=== PATIENT | female | born 1980 | race Caucasian/White ===

== ENCOUNTER 2017-01-09 06:00 | Inpatient (IN) | payer OTHER ==
[2017-01-09] MEDS ORDERED: EPSOM SALT 454 GM TP PRN (08:31)
[2017-01-09] MEDS ORDERED: LR 1,000 ML IV PRN (08:31)
[2017-01-09] MEDS ORDERED: OXYTOCIN/RINGERS LACTATE 1,000 ML IV PRN (08:31)
[2017-01-09] MEDS ORDERED: TERBUTALINE SULFATE 1 MG/ML VIAL IV PRN (08:31)
[2017-01-09] MEDS ORDERED: OLIVE OIL 118 ML BTL MISC PRN (08:31)
[2017-01-09 09:18] LABS: % IMMATURE GRANULYOCYTES 0.7 % (0.0-1.1); ABSOLUTE IMMATURE GRANULOCYTES 0.08 10^3/uL (0.00-0.10); ADD DIFF? NO; ADD MORPH? NO; ADD SCAN? NO; ATYPICAL LYMPHOCYTE FLAG 0 (0-99); FRAGMENT RBC FLAG 0 (0-99); HEMATOCRIT 38.2 % (38.0-47.0); HEMOGLOBIN 12.6 g/dL (12.6-16.3); LEFT SHIFT FLG 0 (0-99); LIPEMIA HEMOLYSIS FLAG 80 (0-99); MEAN CELL HEMOGLOBIN 26.6 pg (27.9-34.1); MEAN CELL VOLUME 80.8 fL (81.5-99.8); MEAN PLATELET VOLUME 11.3 fL (8.7-11.7); PLATELET CLUMPS FLAG 20 (0-99); PLATELET COUNT 226 10^3/uL (150-400); RED BLOOD CELL COUNT 4.73 10^6/uL (4.18-5.33); RED CELL DISTRIBUTION WIDTH 13.9 % (11.5-15.2)
[2017-01-09] MEDS ORDERED: LIDOCAINE 1% 300 MG/30 ML SDV ONE (09:19)
[2017-01-09] MEDS ORDERED: LR 500 ML IV PRN (09:19)
[2017-01-09] MEDS ORDERED: OLIVE OIL 118 ML BTL ONE (09:19)
[2017-01-09] MEDS ORDERED: TERBUTALINE SULFATE 1 MG/ML VIAL ONE (09:20)
[2017-01-09] MEDS ORDERED: MISOPROSTOL 200 MCG TAB ONE (09:20)
[2017-01-09] MEDS ORDERED: OXYTOCIN 10 UNIT/ML VIAL ONE (09:20)
[2017-01-09] MEDS ORDERED: AMMONIA AROMATIC 1 EACH AMP IH ONE (09:20)
[2017-01-09] MEDS ORDERED: OXYTOCIN/RINGERS LACTATE 500 ML IV SCH (09:30)
--- NOTE | 2017-01-09 09:48 | GHP ---
[f rep st] PREOP HISTORY AND PHYSICAL DATE OF ADMISSION: 01/09/2017 ADMISSION DIAGNOSIS: Intrauterine at 40 and 5/7ths week's gestation for augmentation of l abor. HISTORY OF PRESENT ILLNESS: The patient is a 36-year-old, 1, para 0, with a last menstrual period of 03/29/2016, and an EDC of 01/04/2017, which was confirmed by an 8-week ultrasound. She joe s had good care at [facility] [place] [facility] since registration at 8 weeks' gestation. Her preg marcela is complicated by increased BMI. Her pre- weight was 252 pounds. She has had approx imately 5 pound weight gain this . She also estimated macrosomia, estimated weight a t 36 weeks, baby was 97th percentile. She also has polyhydramnios with an CHRIS of 27.5 and that has been monitored weekly. She was not diagnosed with gestational diabetes. She has had an early 1 waylon r GTT which was elevated but a 3 hour which was normal and a 3rd trimester 1 hour GTT which was norm al. She has a history of scoliosis and questionable history of chronic hypertension, some elevated blood pressures pre and during this but never diagnosed with preeclampsia. Currently she has been having contractions for approximately 24 hours, ranging over 5 to 9 minutes, ranging in int ensity, some mild to moderate. No leakage of fluid. Minimal spotting. No active labor. Other ric n that, 10-point review of systems is negative and she feels well and has had good movement. She was assessed for labor check on the and with irregular contractions. Her cervix was found t o be 3, 75%. Overnight she has continued to have irregular contractions. This morning she is 4 and 75%, and wishes to be admitted for augmentation of labor, now at 40 and 5. PAST OBSTETRICAL HISTORY: There is none, this is her first . GYNECOLOGICAL PROBLEMS: She had a normal menstrual triad, menarche at 14, interval every 28-31 days . Cycles 5-7 days and had a sure and regular last menstrual period. She did have a history of an a bnormal Pap in this which was LGSIL. She had colpo that was negative but no biopsies were performed, that will be repeated . PAST MEDICAL HISTORY: Significant for elevated BMI and possible chronic hypertension but not a true diagnosis. She also has a history of scoliosis and had anesthesia consult a couple weeks ago. PAST SURGICAL HISTORY: She had a lap band surgery in 2007. Adenoids in childhood. No other surgic al history. ALLERGIES: Allergic to sulfa, causes anaphylaxis. MEDS: Include only vitamins. LABS: B positive, antibody negative, RPR nonreactive, rubella immune, hepatitis negative, HIV negat tonja, Pap LGSIL, gonorrhea and chlamydia negative. Verifi normal. AFP negative. One hour GTT 129. GBS is negative. SOCIAL HISTORY: She works as an associate attorney. Her and her Martínez were at the [facility] of this , are now together. She denies tobacco, alcohol, and drug use. FAMILY HISTORY: Maternal grandfather had a myocardial infarction. Paternal grandfather, father and paternal uncle have hypertension. Mother had a DVT on oral contraceptive pills. Paternal grandfat her in his 50s because of a stroke. Mother has congenital kidney disease. OBJECTIVE: Today her blood pressure was elevated at 160/98. heart tones are 130s and reactiv e. Moderate variability. Category 1. Contractions are irregular. Cervix is 4, 90%, -1, and ceph alic. ASSESSMENT AND PLAN: A 36-year-old, 1, para 0, at 40 and 5/7ths weeks' gestation, had a pro longed prodromal labor. Will be admitted for augmentation of labor. We will send [facility] labs due to e levated blood pressures and watch her blood pressures closely. We will periodically monitor with ma nual blood pressure cuff because of her increased BMI. We question the accuracy of the automatic cuf f. She currently denies any signs or symptoms of preeclampsia. Begin Pitocin and active labor emmett ochoa. /[id number]/MODL
[2017-01-09 09:57] LABS: ASPARTATE AMINOTRANSFERASE 19 IU/L (14-46); BILIRUBIN,TOTAL 0.5 mg/dL (0.1-1.4); BILIRUBIN-UNCONJUGATED 0.1 mg/dL (0.0-1.1); CREATININE 0.6 mg/dL (0.6-1.0); GLOMERULAR FILTRATION RATE > 60; URIC ACID 4.6 mg/dL (2.5-6.8)
[2017-01-09 09:58] LABS: ALANINE AMINOTRANSFERASE 18 IU/L (9-52); BILIRUBIN-CONJUGATED 0.4 mg/dL (0.0-0.5); LACTATE DEHYDROGENASE 815 IU/L (313-618)
--- NOTE | 2017-01-09 13:08 | OBPROG ---
OBG Labor Progress Note Assessment/Plan: Assessment: 36 y/o @ 40 5/7 weeks augmentation of labor Plan: Pt declines AROM now, will continue to increase pitocin to develop a regular pattern. Re check in 2 hours and she will consider AROM at this time. 01/09/17 13:09 Subjective: Pt is doing well now. She is feeling more tightening and is aware of contractions and pelvic pain/ pressure. She is not breathing through them or in a lot of pain. Objective: 01/09/17 08:27 01/09/17 08:27 Patient ABO/Rh B POSITIVE 01/09/17 08:27 Uric Acid 4.6 mg/dL (2.5-6.8) 01/09/17 08:27 Total Bilirubin 0.5 mg/dL (0.1-1.4) 01/09/17 08:27 Conjugated Bilirubin 0.4 mg/dL (0.0-0.5) 01/09/17 08:27 Unconjugated Bilirubin 0.1 mg/dL (0.0-1.1) 01/09/17 08:27 AST 19 IU/L (14-46) 01/09/17 08:27 ALT 18 IU/L (9-52) 01/09/17 08:27 Lactate Dehydrogenase 815 IU/L (313-618) H 01/09/17 08:27 - SVE Dilation (cm): 4 Effacement (%): 75 Station: -1 Oxytocin Orders Assessment - Pre-Induction/Augmentation Assessment Indication: IUP @ 40 5/7 weeks, LGA and polyhydramnios Presentation: Vertex Gestational Age: 40 week(s) and 5 day(s) Gestational Age Determined By: Ultrasound Estimated Weight: 5786-6421 Membrane Status: Intact Current Sterile Vaginal Exam (SVE): 75/-1 Current Contraction Pattern: Regular (Q 2-3) - Heart Rate Pattern Herrera FHR Baseline (bpm): 130 FHR Category: 1 FHR Pattern Variability: Moderate FHR Accelerations: Present - Reeder's Score Dilation: 3-4cm Effacement: 60-70 Station: -1,0 Cervix: Soft Cervix Position: Anterior Reeder Score Total: 10 - Induction/Augmentation Consent Risks/Benefits of Procedure Reviewed/Pt Agrees to Proceed: Yes ICD10 Worksheet Patient Problems: Problems Problem Status Onset Elective induction of labor planned Acute - ICD10 Problem Qualifiers (1) Elective induction of labor planned
--- NOTE | 2017-01-09 15:12 | OBPROG ---
OBG Labor Progress Note Assessment/Plan: Assessment: 36 y/o @ 40 5/7 weeks augmentation of labor Plan: AROM now for clear fluid and patient and baby did well. We will continue to dose pitocin to keep an active pattern. Pain management, with NO or epidural prn. 01/09/17 13:09 01/09/17 15:11 Subjective: Pt is breathing through and coping with stronger and regular contractions. Objective: 01/09/17 08:27 01/09/17 08:27 Patient ABO/Rh B POSITIVE 01/09/17 08:27 Uric Acid 4.6 mg/dL (2.5-6.8) 01/09/17 08:27 Total Bilirubin 0.5 mg/dL (0.1-1.4) 01/09/17 08:27 Conjugated Bilirubin 0.4 mg/dL (0.0-0.5) 01/09/17 08:27 Unconjugated Bilirubin 0.1 mg/dL (0.0-1.1) 01/09/17 08:27 AST 19 IU/L (14-46) 01/09/17 08:27 ALT 18 IU/L (9-52) 01/09/17 08:27 Lactate Dehydrogenase 815 IU/L (313-618) H 01/09/17 08:27 - SVE Dilation (cm): 5 Effacement (%): 75 Station: -1 - Procedures Non-surgical Procedures: Amniotomy - Physical Exam Estimated Weight: 0498-9981 Oxytocin Orders Assessment - Pre-Induction/Augmentation Assessment Presentation: Vertex Gestational Age: 40 week(s) and 5 day(s) Estimated Weight: 9371-9249 ICD10 Worksheet Patient Problems: Problems Problem Status Onset Elective induction of labor planned Acute - ICD10 Problem Qualifiers (1) Elective induction of labor planned
--- NOTE | 2017-01-09 19:10 | OBPROG ---
OBG Labor Progress Note Assessment/Plan: Assessment: 36 y/o @ 40 5/7 weeks augmentation of labor Plan: Small changes of cervical dilation now. If she hasn't made significant change on next check, I will place an IUPC and discuss an epidural. 01/09/17 13:09 01/09/17 15:11 01/09/17 19:04 Subjective: Pt is breathing through contractions. Objective: 01/09/17 08:27 01/09/17 08:27 Patient ABO/Rh B POSITIVE 01/09/17 08:27 Uric Acid 4.6 mg/dL (2.5-6.8) 01/09/17 08:27 Total Bilirubin 0.5 mg/dL (0.1-1.4) 01/09/17 08:27 Conjugated Bilirubin 0.4 mg/dL (0.0-0.5) 01/09/17 08:27 Unconjugated Bilirubin 0.1 mg/dL (0.0-1.1) 01/09/17 08:27 AST 19 IU/L (14-46) 01/09/17 08:27 ALT 18 IU/L (9-52) 01/09/17 08:27 Lactate Dehydrogenase 815 IU/L (313-618) H 01/09/17 08:27 - SVE Dilation (cm): 6 Effacement (%): 80 Station: -1 - Procedures Non-surgical Procedures: Amniotomy - Physical Exam Estimated Weight: 0588-0130 Oxytocin Orders Assessment - Pre-Induction/Augmentation Assessment Presentation: Vertex Gestational Age: 40 week(s) and 5 day(s) Estimated Weight: 0954-7297 ICD10 Worksheet Patient Problems: Problems Problem Status Onset Elective induction of labor planned Acute - ICD10 Problem Qualifiers (1) Elective induction of labor planned
--- NOTE | 2017-01-09 20:05 | OBPROG ---
OBG Labor Progress Note Assessment/Plan: Assessment: 36 y/o @ 40 5/7 weeks augmentation of labor Plan: No cervical change in the last hour. I placed an IUPC to document the strength of the contractions and an FSE to aid in monitoring the baby and give her some freedom of movement. She is considering her pain management options. 01/09/17 13:09 01/09/17 15:11 01/09/17 19:04 01/09/17 20:05 Subjective: Pt is feeling strong contractions breathing through them. She is feeling some pelvic pressure during the contractions. Objective: 01/09/17 08:27 01/09/17 08:27 Patient ABO/Rh B POSITIVE 01/09/17 08:27 Uric Acid 4.6 mg/dL (2.5-6.8) 01/09/17 08:27 Total Bilirubin 0.5 mg/dL (0.1-1.4) 01/09/17 08:27 Conjugated Bilirubin 0.4 mg/dL (0.0-0.5) 01/09/17 08:27 Unconjugated Bilirubin 0.1 mg/dL (0.0-1.1) 01/09/17 08:27 AST 19 IU/L (14-46) 01/09/17 08:27 ALT 18 IU/L (9-52) 01/09/17 08:27 Lactate Dehydrogenase 815 IU/L (313-618) H 01/09/17 08:27 - SVE Dilation (cm): 6 Effacement (%): 80 Station: -1 - Procedures Non-surgical Procedures: Amniotomy, FSE, IUPC - Physical Exam Estimated Weight: 7515-2227 Oxytocin Orders Assessment - Pre-Induction/Augmentation Assessment Presentation: Vertex Gestational Age: 40 week(s) and 5 day(s) Estimated Weight: 1846-1200 ICD10 Worksheet Patient Problems: Problems Problem Status Onset Elective induction of labor planned Acute - ICD10 Problem Qualifiers (1) Elective induction of labor planned
[2017-01-09] MEDS ORDERED: BUPIVACAINE 0.25% 30 ML SDV ONE (21:00)
[2017-01-09] MEDS ORDERED: fentanYL 4MCG/ML/BUP 0.0625% RTU 250 ML BAG EP ONE (21:01)
[2017-01-09] MEDS ORDERED: PHENYLEPHRINE HCL 100 MCG/ML SYR ONE (21:03)
[2017-01-09] MEDS ORDERED: LR 500 ML IV SCH (22:30)
[2017-01-09] MEDS ORDERED: CALCIUM CARBONATE 500 MG CHEWABLE TAB PO PRN (22:40)
--- NOTE | 2017-01-09 23:38 | OBPROG ---
OBG Labor Progress Note Assessment/Plan: Assessment: 36 y/o @ 40 5/7 weeks augmentation of labor Plan: Pt is now comfortable with her epidural and we are dosing the pitocin to provide an adequate labor pattern. We will try to alternate maternal position to obtimize postion. status is reassuring. 01/09/17 13:09 01/09/17 15:11 01/09/17 19:04 01/09/17 20:05 01/09/17 23:36 Subjective: Pt is comfortable with her epidural but she is aware of her contractions. She denies pelvic pressure or pain. Objective: 01/09/17 08:27 01/09/17 08:27 Patient ABO/Rh B POSITIVE 01/09/17 08:27 Uric Acid 4.6 mg/dL (2.5-6.8) 01/09/17 08:27 Total Bilirubin 0.5 mg/dL (0.1-1.4) 01/09/17 08:27 Conjugated Bilirubin 0.4 mg/dL (0.0-0.5) 01/09/17 08:27 Unconjugated Bilirubin 0.1 mg/dL (0.0-1.1) 01/09/17 08:27 AST 19 IU/L (14-46) 01/09/17 08:27 ALT 18 IU/L (9-52) 01/09/17 08:27 Lactate Dehydrogenase 815 IU/L (313-618) H 01/09/17 08:27 - SVE Dilation (cm): 6 Effacement (%): 90 Station: -1 (replaced IUPC which fell out from movement ) - Procedures Non-surgical Procedures: Amniotomy, FSE, IUPC - Physical Exam Estimated Weight: 8508-9495 Oxytocin Orders Assessment - Pre-Induction/Augmentation Assessment Presentation: Vertex Gestational Age: 40 week(s) and 5 day(s) Estimated Weight: 0901-9287 ICD10 Worksheet Patient Problems: Problems Problem Status Onset Elective induction of labor planned Acute - ICD10 Problem Qualifiers (1) Elective induction of labor planned
--- NOTE | 2017-01-10 05:56 | OBPROG ---
OBG Labor Progress Note Assessment/Plan: Assessment: 36 y/o @ 40 5/7 weeks augmentation of labor Plan: We have now had minimal cervical change and no change in position since beginning this IOL 22 hours ago. I discussed with Sara the risks of prolonged labor with high dose pitocin and risks specifically of hemorrhage and infection. I am also worried about her surgical risks because of her increased BMI, and I explained this to her as well. I feel that we need to optimize position and we have been doing that with the peanut ball and changing maternal position. Because status has always been reassuring and Sara has not had a fever, tachycardia or any other signs of infection, we will give it 2 more hours and then reassess. 01/09/17 13:09 01/09/17 15:11 01/09/17 19:04 01/09/17 20:05 01/09/17 23:36 01/10/17 05:43 Subjective: Pt has been resting overnight. She is feeling some more pelvic pain with contractions but no pelvic pressure. Objective: 01/09/17 08:27 01/09/17 08:27 Patient ABO/Rh B POSITIVE 01/09/17 08:27 Uric Acid 4.6 mg/dL (2.5-6.8) 01/09/17 08:27 Total Bilirubin 0.5 mg/dL (0.1-1.4) 01/09/17 08:27 Conjugated Bilirubin 0.4 mg/dL (0.0-0.5) 01/09/17 08:27 Unconjugated Bilirubin 0.1 mg/dL (0.0-1.1) 01/09/17 08:27 AST 19 IU/L (14-46) 01/09/17 08:27 ALT 18 IU/L (9-52) 01/09/17 08:27 Lactate Dehydrogenase 815 IU/L (313-618) H 01/09/17 08:27 - SVE Dilation (cm): 7 Effacement (%): 80 Station: -1 - Procedures Non-surgical Procedures: Amniotomy, FSE, IUPC - Physical Exam Estimated Weight: 1085-6150 Oxytocin Orders Assessment - Pre-Induction/Augmentation Assessment Presentation: Vertex Gestational Age: 40 week(s) and 5 day(s) Estimated Weight: 9079-2938 ICD10 Worksheet Patient Problems: Problems Problem Status Onset Elective induction of labor planned Acute - ICD10 Problem Qualifiers (1) Elective induction of labor planned
[2017-01-10] MEDS ORDERED: ONDANSETRON 4 MG/2 ML VIAL IVP PRN ×2 (07:25→09:52)
[2017-01-10] MEDS ORDERED: fentaNYL 2MCG/ML/BUP 0.1% RTU 100 ML BAG EP ONE (07:56)
[2017-01-10] MEDS ORDERED: BUPIVACAINE 0.25% 30 ML SDV ONE (07:57)
[2017-01-10] MEDS ORDERED: PHENYLEPHRINE HCL 100 MCG/ML SYR ONE (07:57)
[2017-01-10] MEDS ORDERED: fentaNYL 100 MCG/2 ML INJ ONE (07:58)
[2017-01-10] MEDS ORDERED: LIDO/EPI 1% **for epidural** 30 ML SDV ONE (08:34)
[2017-01-10] MEDS ORDERED: LIDOCAINE 1% 300 MG/30 ML SDV ONE (08:34)
[2017-01-10] MEDS ORDERED: PHENYLEPHRINE HCL 100 MCG/ML SYR IVP PRN ×2 (09:52→13:44)
[2017-01-10] MEDS ORDERED: LR 500 ML IV SCH (10:00)
[2017-01-10] MEDS ORDERED: fentaNYL 2MCG/ML/BUP 0.1% RTU 100 ML EP SCH (10:00)
--- NOTE | 2017-01-10 10:05 | OBPROG ---
OBG Labor Progress Note Assessment/Plan: Assessment: 36 y/o @ 40 5/7 weeks augmentation of labor Plan: Her epidural catheter fell out at 7am. We held the pitocin during replacement. status has been reassuring through the labor however baby did have a few isolated late decelerations during epidural placement. She has had some cervical change especially with upright positioning. We re-started the pitocin @ 15 (half of the original dose) and will continue to build up to an adequate labor pattern. 01/09/17 13:09 01/09/17 15:11 01/09/17 19:04 01/09/17 20:05 01/09/17 23:36 01/10/17 05:43 01/10/17 09:55 Subjective: Pt is complaining of more rectal pressure. She is comfortable with her epidural. Objective: 01/09/17 08:27 01/09/17 08:27 Patient ABO/Rh B POSITIVE 01/09/17 08:27 Uric Acid 4.6 mg/dL (2.5-6.8) 01/09/17 08:27 Total Bilirubin 0.5 mg/dL (0.1-1.4) 01/09/17 08:27 Conjugated Bilirubin 0.4 mg/dL (0.0-0.5) 01/09/17 08:27 Unconjugated Bilirubin 0.1 mg/dL (0.0-1.1) 01/09/17 08:27 AST 19 IU/L (14-46) 01/09/17 08:27 ALT 18 IU/L (9-52) 01/09/17 08:27 Lactate Dehydrogenase 815 IU/L (313-618) H 01/09/17 08:27 - SVE Dilation (cm): 8 Effacement (%): 90 Station: 0 - Procedures Non-surgical Procedures: Amniotomy, FSE, IUPC - Physical Exam Estimated Weight: 2916-7022 Oxytocin Orders Assessment - Pre-Induction/Augmentation Assessment Presentation: Vertex Gestational Age: 40 week(s) and 5 day(s) Estimated Weight: 4162-8997 ICD10 Worksheet Patient Problems: Problems Problem Status Onset Elective induction of labor planned Acute - ICD10 Problem Qualifiers (1) Elective induction of labor planned
--- NOTE | 2017-01-10 11:34 | OBPROG ---
OBG Labor Progress Note Assessment/Plan: Assessment: 36 y/o @ 40 5/7 weeks augmentation of labor Plan: She has had no interval cervical change, however contractions are now far from adequate. I replaced the IUPC, we will continue to increase the dose and will try hands and knees positioning. I will re check in 1-2 hours. Pt is aware of my suspicion for CPD and arrest of dilation and descent. She is aware of her risks for surgery and also risks of continuing labor with high dose pitocin and slow progress. status continues to be reassuring and she does not show any signs of infection. 01/09/17 13:09 01/09/17 15:11 01/09/17 19:04 01/09/17 20:05 01/09/17 23:36 01/10/17 05:43 01/10/17 09:55 01/10/17 11:31 Subjective: Pt is still comfortable with her epidural. She is feeling some rectal pressure in high fowlers position. Objective: 01/09/17 08:27 01/09/17 08:27 Patient ABO/Rh B POSITIVE 01/09/17 08:27 Uric Acid 4.6 mg/dL (2.5-6.8) 01/09/17 08:27 Total Bilirubin 0.5 mg/dL (0.1-1.4) 01/09/17 08:27 Conjugated Bilirubin 0.4 mg/dL (0.0-0.5) 01/09/17 08:27 Unconjugated Bilirubin 0.1 mg/dL (0.0-1.1) 01/09/17 08:27 AST 19 IU/L (14-46) 01/09/17 08:27 ALT 18 IU/L (9-52) 01/09/17 08:27 Lactate Dehydrogenase 815 IU/L (313-618) H 01/09/17 08:27 - SVE Dilation (cm): 8 Effacement (%): 90 Station: 0 Herrera Current Contraction Pattern: Regular (Q 3-4 mU 80-100) FHR (bpm): 130 FHR Pattern Variability: Moderate FHR Category: 1 Membranes: AROM Amniotic Fluid Color: Clear - Procedures Non-surgical Procedures: Amniotomy, FSE, IUPC (IUPC replaced ) - Physical Exam Estimated Weight: 1966-5059 Oxytocin Orders Assessment - Pre-Induction/Augmentation Assessment Presentation: Vertex Gestational Age: 40 week(s) and 5 day(s) Estimated Weight: 8196-5310 ICD10 Worksheet Patient Problems: Problems Problem Status Onset Elective induction of labor planned Acute - ICD10 Problem Qualifiers (1) Elective induction of labor planned
--- NOTE | 2017-01-10 12:27 | OBPROG ---
OBG Labor Progress Note Assessment/Plan: Assessment: 36 y/o @ 40 5/7 weeks augmentation of labor Plan: She has significant cervical change and much more sensation. Will continue hands and knees positioning and encourage descent of the head and complete dilation prior to beginning pushing efforts. status is reassuring. 01/09/17 13:09 01/09/17 15:11 01/09/17 19:04 01/09/17 20:05 01/09/17 23:36 01/10/17 05:43 01/10/17 09:55 01/10/17 11:31 01/10/17 12:25 Subjective: Pt is feeling strong rectal pressure and the urge to push. Objective: 01/09/17 08:27 01/09/17 08:27 Patient ABO/Rh B POSITIVE 01/09/17 08:27 Uric Acid 4.6 mg/dL (2.5-6.8) 01/09/17 08:27 Total Bilirubin 0.5 mg/dL (0.1-1.4) 01/09/17 08:27 Conjugated Bilirubin 0.4 mg/dL (0.0-0.5) 01/09/17 08:27 Unconjugated Bilirubin 0.1 mg/dL (0.0-1.1) 01/09/17 08:27 AST 19 IU/L (14-46) 01/09/17 08:27 ALT 18 IU/L (9-52) 01/09/17 08:27 Lactate Dehydrogenase 815 IU/L (313-618) H 01/09/17 08:27 - SVE Dilation (cm): 9 Effacement (%): 90 Station: +1 Herrera Current Contraction Pattern: Regular (Q 2-3) FHR (bpm): 160 FHR Pattern Variability: Moderate FHR Category: 1 Membranes: AROM Amniotic Fluid Color: Clear - Procedures Non-surgical Procedures: Amniotomy, FSE, IUPC (IUPC replaced ) - Physical Exam Estimated Weight: 3979-7328 Oxytocin Orders Assessment - Pre-Induction/Augmentation Assessment Presentation: Vertex Gestational Age: 40 week(s) and 5 day(s) Estimated Weight: 4625-4441 ICD10 Worksheet Patient Problems: Problems Problem Status Onset Elective induction of labor planned Acute - ICD10 Problem Qualifiers (1) Elective induction of labor planned
[2017-01-10] MEDS ORDERED: CEFAZOLIN 2 GM/DEXTROSE/100 ML BAG IV ONE (13:28)
[2017-01-10] MEDS ORDERED: HEMABATE 250 MCG/1 ML AMP IM ONE (13:29)
[2017-01-10] MEDS ORDERED: METHYLERGONOVINE MAL 0.2 MG/ML INJ ONE (13:30)
[2017-01-10] MEDS ORDERED: DIPHENOXYLATE/ATROPINE LOMOTIL 1 TAB ONE (13:31)
[2017-01-10] MEDS ORDERED: CITRIC ACID/SODIUM CITRATE 30 ML UDCUP ONE (13:39)
[2017-01-10] MEDS ORDERED: fentaNYL 100 MCG/2 ML INJ IVP PRN (13:44)
[2017-01-10] MEDS ORDERED: CITRIC ACID/SODIUM CITRATE 30 ML UDCUP PO ONE (13:47)
--- NOTE | 2017-01-10 13:50 | PREANESOB ---
Obstetric Pre-Anesthesia Info - General Info Proposed Procedure: C Section : 1 Para: 0 - Info Status: Full Term FHR Pattern: Reassuring (Epidural in place) - Labor Status Cervical Dilation per last OB SVE: 9 Station per last OB SVE: +1 Rupture of Membranes Time: 15:07 Anesthesia Allergies/Adverse Reactions: Allergy/AdvReac Type Severity Reaction Status Date / Time Sulfa (Sulfonamide Allergy Severe Verified 01/09/17 08:30 Antibiotics) Home Medications: Medication Instructions Recorded Vit27&Calcium/Iron/FA 1 tab PO DAILY 01/09/17 [] Visit Medications: Generic Name Dose Route Start Last Admin Trade Name Freq PRN Reason Stop Dose Admin Calcium Carbonate 500 - 1,000 mg 01/09/17 22:40 Tums PO 07/08/17 22:39 Q4 PRN HEARTBURN Citric Acid/Sodium Citrate 30 ml 01/10/17 13:47 Bicitra PO 01/10/17 13:48 ONCE ONE Fentanyl 25 - 50 mcg 01/10/17 13:44 Sublimaze IVP 01/10/17 14:46 Q5M PRN Short acting pain control Lactated Ringer's 1,000 mls @ 0 mls/hr 01/09/17 08:31 Lr IV 07/08/17 08:30 PRN PRN SEE PROTOCOL CONDITIONS Protocol Per Protocol Oxytocin/Lactated Ringer's 1,000 mls @ 150 mls/hr 01/09/17 08:31 Pitocin 20 Units/Lr (Premix) IV PRN PRN Post- bleeding Lactated Ringer's 500 mls @ 500 mls/hr 01/09/17 09:19 Lr IV PRN PRN Maternal Hypotension Oxytocin/Lactated Ringer's 500 mls @ 0 mls/hr 01/09/17 09:30 01/09/17 09:31 Pitocin 30 Units/Lr (Premix) IV 07/08/17 09:29 500 mls CONT RUBY Administration Protocol Per Protocol Lactated Ringer's 500 mls @ 0 mls/hr 01/09/17 22:30 Lr IV 07/08/17 22:29 CONT RUBY As Directed Fentanyl/Bupivacaine HCl 100 mls @ 0 mls/hr 01/10/17 10:00 Fentanyl/Bupivacaine/Ns 2 Mcg/Ml 0.1% (Premix EP 01/20/17 09:59 CONT RUBY Protocol As Directed Lactated Ringer's 500 mls @ 0 mls/hr 01/10/17 10:00 Lr IV 07/09/17 09:59 CONT RUBY As Directed Ibuprofen 600 mg 01/09/17 08:31 Motrin PO 07/08/17 08:30 Q6HRS PRN post , inflammation Magnesium Sulfate 454 gm 01/09/17 08:31 Epsom Salt TP 07/08/17 08:30 PRN PRN perineal discomfort Sweet Oil 118 ml 01/09/17 08:31 Sweet Oil MISC 07/08/17 08:30 ONCE PRN preneal massage Ondansetron HCl 4 mg 01/10/17 07:25 Zofran IVP 07/09/17 07:24 Q4 PRN Nausea/Vomiting, Can't Take PO Ondansetron HCl 4 mg 01/10/17 09:52 Zofran IVP 07/09/17 09:51 Q4HRS PRN Nausea/Vomiting, Can't Take PO Phenylephrine HCl 100 mcg 01/10/17 09:52 Neosynephrine IVP 07/09/17 09:51 .Q2M PRN Hypotension Phenylephrine HCl 100 mcg 01/10/17 13:44 Neosynephrine IVP 01/10/17 14:47 Q1M PRN Hypotension Terbutaline Sulfate 0.25 mg 01/09/17 08:31 Brethine IV 07/08/17 08:30 ONCE PRN Tachysystole Discontinued Medications Generic Name Dose Route Start Last Admin Trade Name Freq PRN Reason Stop Dose Admin Ammonia (Aromatic Spirit) Confirm 01/09/17 09:20 Ammonia Aromatic Administered 01/09/17 09:21 Dose 1 each IH .STK-MED ONE Bupivacaine HCl Confirm 01/09/17 21:00 Sensorcaine 0.25% Sdv Administered 01/09/17 21:01 Dose 30 ml .ROUTE .STK-MED ONE Bupivacaine HCl Confirm 01/10/17 07:57 Sensorcaine 0.25% Sdv Administered 01/10/17 07:58 Dose 30 ml .ROUTE .STK-MED ONE Carboprost Tromethamine Confirm 01/10/17 13:29 Hemabate Administered 01/10/17 13:30 Dose 250 mcg IM .STK-MED ONE Cefazolin Sodium/Dextrose Confirm 01/10/17 13:28 Ancef 2 Gm (Premix) Administered 01/10/17 13:29 Dose 2 gm IV .STK-MED ONE Citric Acid/Sodium Citrate Confirm 01/10/17 13:39 Bicitra Administered 01/10/17 13:40 Dose 30 ml .ROUTE .STK-MED ONE Diphenoxylate HCl/Atropine Confirm 01/10/17 13:31 Lomotil Administered 01/10/17 13:32 Dose 1 tab .ROUTE .STK-MED ONE Fentanyl Confirm 01/10/17 07:58 Sublimaze Administered 01/10/17 07:59 Dose 100 mcg .ROUTE .STK-MED ONE Fentanyl/Bupivacaine HCl Confirm 01/09/17 21:01 Fentanyl/Bupivacaine/Ns 4 Mcg/Ml 0.0625%(Rtu) Administered 01/09/17 21:02 Dose 250 ml EP .STK-MED ONE Fentanyl/Bupivacaine HCl Confirm 01/10/17 07:56 Fentanyl/Bupivacaine/Ns 2 Mcg/Ml 0.1% (Premix Administered 01/10/17 07:57 Dose 100 ml EP .STK-MED ONE Lidocaine HCl Confirm 01/09/17 09:19 Lidocaine Hcl 1% Administered 01/09/17 09:20 Dose 300 mg .ROUTE .STK-MED ONE Lidocaine HCl Confirm 01/10/17 08:34 Lidocaine Hcl 1% Administered 01/10/17 08:35 Dose 300 mg .ROUTE .STK-MED ONE Lidocaine/Epinephrine Confirm 01/10/17 08:34 Xylocaine 1%-Epi 1:200,000 Administered 01/10/17 08:35 Dose 30 ml .ROUTE .STK-MED ONE Methylergonovine Maleate Confirm 01/10/17 13:30 Methergine Administered 01/10/17 13:31 Dose 0.2 mg .ROUTE .STK-MED ONE Misoprostol Confirm 01/09/17 09:20 Cytotec Administered 01/09/17 09:21 Dose 1,000 mcg .ROUTE .STK-MED ONE Sweet Oil Confirm 01/09/17 09:19 Sweet Oil Administered 01/09/17 09:20 Dose 118 ml .ROUTE .STK-MED ONE Oxytocin Confirm 01/09/17 09:20 Pitocin Administered 01/09/17 09:21 Dose 40 unit .ROUTE .STK-MED ONE Phenylephrine HCl Confirm 01/09/17 21:03 Neosynephrine Administered 01/09/17 21:04 Dose 1,000 mcg .ROUTE .STK-MED ONE Phenylephrine HCl Confirm 01/10/17 07:57 Neosynephrine Administered 01/10/17 07:58 Dose 1,000 mcg .ROUTE .STK-MED ONE Sufentanil Citrate Confirm 01/09/17 20:59 Sufenta Administered 01/09/17 21:00 Dose 50 mcg .ROUTE .STK-MED ONE Terbutaline Sulfate Confirm 01/09/17 09:20 Brethine Administered 01/09/17 09:21 Dose 1 mg .ROUTE .STK-MED ONE - Focused Exam Height/Weight (Nursing): Height 168.91 cm Weight 162.386 kg Labs: 01/09/17 08:27 01/09/17 08:27 Patient ABO/Rh B POSITIVE 01/09/17 08:27 Uric Acid 4.6 mg/dL (2.5-6.8) 01/09/17 08:27 Total Bilirubin 0.5 mg/dL (0.1-1.4) 01/09/17 08:27 Conjugated Bilirubin 0.4 mg/dL (0.0-0.5) 01/09/17 08:27 Unconjugated Bilirubin 0.1 mg/dL (0.0-1.1) 01/09/17 08:27 AST 19 IU/L (14-46) 01/09/17 08:27 ALT 18 IU/L (9-52) 01/09/17 08:27 Lactate Dehydrogenase 815 IU/L (313-618) H 01/09/17 08:27
[2017-01-10 14:59] LABS: CORD BLOOD PCO2 50.4 mmHg (37-60); PH ARTERIAL CORD BLOOD 7.3 (7.10-7.37)
[2017-01-10 15:00] LABS: PH VENOUS CORD BLOOD 7.37 (7.20-7.42)
[2017-01-10] MEDS ORDERED: VASOPRESSIN 20 UNIT/ML VIAL ONE (15:04)
[2017-01-10] MEDS ORDERED: LIDO/EPI 2% **for epidural** 20 ML SDV ONE (15:04)
[2017-01-10] MEDS ORDERED: epHEDrine SULFATE 10 MG/ML SYR ONE (15:05)
[2017-01-10] MEDS ORDERED: GLYCOPYRROLATE 0.2 MG/1 ML VIAL ONE (15:14)
[2017-01-10] MEDS ORDERED: morphINE PF 5 MG/10 ML INJ ONE (15:26)
--- NOTE | 2017-01-10 15:59 | OBDEL ---
Info Type: Primary GBS+: No Indications for Delivery: Postterm Favorable Cervix Vaginal Delivery - Labor and Delivery Onset of Contractions Date: 01/09/17 Onset of Contractions Time: 14:00 Rupture of Membranes Date: 01/09/17 Rupture of Membranes Time: 15:07 Non-surgical Procedures: Amniotomy, FSE, IUPC (IUPC replaced ) Cord Gases: Cord Gases Cord Blood PCO2 50.4 mmHg (37-60) 01/10/17 14:46 Cord Base Excess -3.0 mEq/L (-13.6--3.2) H 01/10/17 14:46 Cord ABG pH 7.30 (7.10-7.37) 01/10/17 14:46 Cord VBG pH 7.37 (7.20-7.42) 01/10/17 14:46 Operative Report - Delivery Pre-op Diagnoses: IUP @ 40 6/7 weeks, arrest of dilation and descent Post-op Diagnoses: same, and chorioamnionitis Nulliparous Prior to Delivery: Yes Presentation at Delivery: Vertex Procedure: Emergent Surgeon: More Baker Shoe Cleaner: Lisbeth Peña Anesthesiologist: Edita Lackey Digital Marketing Assistant/MEDIA RECONCILIATION SPECIALIST: Pita Winn L&Victor Hugo Analgesia/Anesthesia Type: Epidural Complications: Other (Specify) (chorioamnionitis) Findings: normal uterus, tubes and ovaries thick meconium and foul smelling fluid upon entry into uterine cavity Specimen(s)/Path: Placenta IV Fluid (ml): 1,700 EBL: 850 Cord Gases: Cord Gases Cord Blood PCO2 50.4 mmHg (37-60) 01/10/17 14:46 Cord Base Excess -3.0 mEq/L (-13.6--3.2) H 01/10/17 14:46 Cord ABG pH 7.30 (7.10-7.37) 01/10/17 14:46 Cord VBG pH 7.37 (7.20-7.42) 01/10/17 14:46 ICD10 Worksheet Patient Problems: Problems Problem Status Onset Elective induction of labor planned Acute - ICD10 Problem Qualifiers (1) Elective induction of labor planned
[2017-01-10] MEDS ORDERED: OXYTOCIN 100 UNITS/10 ML VIAL ONE (16:00)
[2017-01-10] MEDS ORDERED: PROMETHAZINE HCL 25 MG/ML INJ IVP PRN (16:04)
[2017-01-10] MEDS ORDERED: DOCUSATE SODIUM 100 MG CAP PO PRN (16:04)
[2017-01-10] MEDS ORDERED: HYDROCODONE/APAP 5/325 TAB PO PRN (16:04)
[2017-01-10] MEDS ORDERED: SIMETHICONE 80 MG TAB CHEW PO PRN (16:04)
[2017-01-10] MEDS ORDERED: MAGNESIUM HYDROXIDE 30 ML UDCUP PO PRN (16:08)
[2017-01-10] MEDS ORDERED: LACTULOSE 20 GM/30 ML UDCUP PO PRN (16:08)
[2017-01-10] MEDS ORDERED: METHYLERGONOVINE MAL 0.2 MG/ML INJ IM ONE (16:08)
[2017-01-10] MEDS ORDERED: BISACODYL 10 MG SUPP PR PRN (16:08)
[2017-01-10] MEDS ORDERED: POLYETHYLENE GLYCOL 3350 17 GM PKT PO PRN (16:08)
[2017-01-10] MEDS: KETOROLAC 30 MG/1 ML SDV IVP PRN ×2 (16:19→22:19)
[2017-01-10] MEDS ORDERED: GENTAMICIN 100 MG/NACL 100 ML IV SCH (16:30)
[2017-01-10] MEDS ORDERED: CLINDAMYCIN 600 MG/DEXTROSE 50 ML IV SCH ×2 (16:30→19:30)
--- NOTE | 2017-01-10 17:08 | GOP ---
[f rep st] OPERATIVE REPORT DATE OF OPERATION: 01/10/2017 SURGEON: More Baker MD WEB DEVELOPMENT MANAGER: RAYMOND Ma ANESTHESIA: Epidural. ANESTHESIOLOGIST: Edita Lackey MD. PREOPERATIVE DIAGNOSIS: Intrauterine at 40-6/7 weeks' gestation with arrest of dilation a nd arrest of descent; failed induction of labor. POSTOPERATIVE DIAGNOSIS: 1. Intrauterine at 40-6/7 weeks' gestation with arrest of dilation and arrest of descent; failed induction of labor. 2. Chorioamnionitis. PROCEDURE PERFORMED: FINDINGS: ESTIMATED BLOOD LOSS: 850 cc. DESCRIPTION OF PROCEDURE: Patient was taken to the operating room where her epidural anesthesia was dosed and was found to be adequate. She had a Cole catheter previously placed in her bladder. Eduardo butler had elevated BMI and a large pannus overlying the location of the Pfannenstiel incision. We u sed tape to secure that pannus away from the operative field, and it was secured to IV poles at the level of her head. She was prepped and draped. After adequate anesthesia was assured and a WHO annabel e-out was performed, a transverse skin incision was made with a scalpel, and the incision was marnie d down to the underlying layer of fascia with the Bovie. Fascia was incised in the midline. Fascia l incision was extended laterally with Parsons scissors. Superior aspect of the fascial incision was g rasped with Aubrey clamps and elevated, and the rectus muscles were dissected off sharply. Inferior aspect of the fascial incision was grasped with the Aubrey clamps and elevated, and the rectus musc les were dissected off sharply. Rectus muscles were in the midline. Peritoneum was enter ed sharply. The peritoneal incision was extended superiorly and inferiorly with good visualization of the bladder. Bladder blade was inserted. The vesicouterine peritoneum was grasped with the pick ups and entered sharply with Metzenbaum scissors. The incision was extended laterally, and bladder flap was created digitally. The uterus was incised with a knife, and there was thick foul-smelling meconium fluid upon entry to the uterine cavity. The incision was extended laterally with bandage s cissors. The was delivered atraumatically. The cord was clamped and cut. The was joe nded off to the waiting nurse practitioner. Cord blood gas, as well as cord bloods, were s ent. The placenta was removed manually. The uterus was exteriorized and cleared of all clots and d ebris. The uterine incision was repaired with 0 Vicryl in a running, locked fashion, and a second i mbricating layer of suture was performed with 0 Vicryl; good hemostasis was obtained. Initially upo n closure of the suture, the uterus was atonic. After patient received IV Pitocin and 1 dose of IM Methergine, the uterine tone improved greatly. The uterus was returned to the abdomen. Gutters wer e cleared of all clots and debris. Reinspection of the uterine incision again assured hemostasis. The rectus muscles were approximated with 2-0 Vicryl in an inverted mattress fashion. The fascia wa s closed with #1 Vicryl in a running fashion. Subcutaneous layer was closed with 2 layers of 2-0 Vi cryl, and the skin was closed with 4-0 Vicryl. Patient, because of her large pannus and the pressur e from the taping, the skin was friable and not coming together well. We took down the taping to al low for flexibility in the skin and placed several asm for reinforcement of the wound. Patient tolerated the procedure well. Sponge, lap, needle, and instrument counts were correct x2. Patient went to the recovery room in good condition. INDICATION FOR PROCEDURE: The patient is a 36-year-old, 1, para 0, with a last menstrual pe riod of 03/29/2016 and an EDC of 01/04/2017, which was confirmed by an 8-week ultrasound. She was a dmitted on January 09, 2017 at 40-5/7 weeks' gestation for induction of labor secondary to favorable cer vix dilation post-term and suspected macrosomia. On admission, her cervix was 3 cm, 80%, -1. Patie nt was started on Pitocin. She had artificial rupture of membranes for clear fluid, and IUPC and FS E were placed over time. She received an epidural for pain control and had a gradual increase of Pi tocin over several hours. Cervical progression was very slow from 3 cm to 8 cm. Multiple position changes. Multiple attempts were made to optimize the dose of Pitocin and adequacy of labor contract ions, as well as position. After over 24 hours of attempted labor, the decision was made to p roceed with for the diagnosis of arrest of dilation and arrest of descent. During the ent jayant labor course, the patient was afebrile, status was reassuring with heart tones in th e 140s to 160s with moderate variability, category 1 strip, vital signs of both mom and baby were st able. The patient was consented for the procedure. She understood the risks and benefits; the risk s including bleeding, infection, damage to internal organs (uterus, tubes, ovaries, bowel, bladder, nerves, blood vessels, ureters), risk of injury, risk of hemorrhage requiring blood transfusio n, hysterectomy, and . She understood these risks and benefits and agreed to proceed. IV FLUIDS: 700 cc. URINE OUTPUT: 150. FINDINGS FOR PROCEDURE: viable female, 's of 8 in 8, weight of 3.83 kg and cord pH arterial wa s 7.3, and venous is 7.37. /[id number]/MODL
[2017-01-10] MEDS: D5W IV SCH (17:48)
[2017-01-10] MEDS: GENTAMICIN SULFATE IV SCH (17:48)
[2017-01-10] MEDS ORDERED: AMPICILLIN SODIUM 2 GM in NS 100 ML IV ONE (18:00)
[2017-01-10] MEDS ORDERED: AMPICILLIN SODIUM 2 GM in NS 100 ML IV SCH (18:00)
[2017-01-10] MEDS: AMPICILLIN SODIUM 2 GM in NS 100 ML IV SCH (19:42)
[2017-01-10] MEDS: CLINDAMYCIN 600 MG/DEXTROSE 50 ML IV SCH (20:43)
--- NOTE | 2017-01-10 22:15 | OBPP ---
Progress Note Assessment/Plan: Assessment: 36 y/o POD 0 s/p LTCS secondary to arrest of dilation, descent and chorioamnionitis Plan: She is doing well post-op. She will be on Amp, Gent and Clinda for 24 hours. Pain is well controlled now with Duramorph and Toradol. Will advance diet as tolerated and transition to po pain meds in the am. 01/09/17 13:09 01/09/17 15:11 01/09/17 19:04 01/09/17 20:05 01/09/17 23:36 01/10/17 05:43 01/10/17 09:55 01/10/17 11:31 01/10/17 12:25 01/10/17 22:12 Subjective: Pt is doing well tonight. She is sitting up holding her baby and having minimal pain. No nausea, vomiting tolerating clears and advancing slowly. Objective: 01/09/17 08:27 01/09/17 08:27 Patient ABO/Rh B POSITIVE 01/09/17 08:27 Uric Acid 4.6 mg/dL (2.5-6.8) 01/09/17 08:27 Total Bilirubin 0.5 mg/dL (0.1-1.4) 01/09/17 08:27 Conjugated Bilirubin 0.4 mg/dL (0.0-0.5) 01/09/17 08:27 Unconjugated Bilirubin 0.1 mg/dL (0.0-1.1) 01/09/17 08:27 AST 19 IU/L (14-46) 01/09/17 08:27 ALT 18 IU/L (9-52) 01/09/17 08:27 Lactate Dehydrogenase 815 IU/L (313-618) H 01/09/17 08:27 Temp Pulse Resp BP Pulse Ox 36.6 C 85 18 129/82 H 94 01/10/17 20:00 01/10/17 20:00 01/10/17 20:00 01/10/17 20:00 01/10/17 20:00 Uterine Position/Fundal Height: Umbilicus -2 Uterine Tone: Firm
[2017-01-11] MEDS: GENTAMICIN SULFATE IV SCH ×3 (01:11→18:21)
[2017-01-11] MEDS: D5W IV SCH ×3 (01:11→18:21)
[2017-01-11] MEDS: AMPICILLIN SODIUM 2 GM in NS 100 ML IV SCH ×5 (02:23→23:41)
[2017-01-11] MEDS: KETOROLAC 30 MG/1 ML SDV IVP PRN ×2 (04:23→12:45)
[2017-01-11] MEDS: CLINDAMYCIN 600 MG/DEXTROSE 50 ML IV SCH ×4 (05:18→20:28)
[2017-01-11] MEDS: SENNOSIDES/DOCUSATE SODIUM TAB PO SCH ×3 (05:51→20:12)
--- NOTE | 2017-01-11 11:22 | WOCRNPDOC ---
SARAHI Advanced Assessment Note - Skin Integrity Problem, Advanced Assess Lower Abdomen Surgical Wound/Incision Dressing Type: Telfa Dressing Description: Intact, Shadowed Closure Description: Eek, Approximated Exudate Amount: Minimal Exudate Color: Reddish/Yellow Exudate Characteristic(s): Dried, Serosanguinous Renae Wound Tissue: Erythema (mild, incisional), Raw (along lateral aspect in pannus) Renae Wound Swelling: Mild Site Odor: None Site Measurement - Head-to-Toe Length X Width X Depth (cm): 18.5cm in length, well-approximated Skin Integrity Problem Comment: Intact, well-approximated surgial incision ( Pfaninsteal) to lower abdomen noted, intact sam. Mild erythema along incision, mostly r/t some moisture-related denudement in pannus. [id number] area of partial-thickness skin loss, to the L lateral aspect of incision, w/ friable tissue. Site is non-tender, and patient tolerated assessment w/out complaint. Presently no dehiscence observed. Supplied animal trainer Cindy w/ incisional bordered dressing w/ silver, to apply after patient has a shower. Wound care will continue to monitor, rounding on patient again tomorrow 01/12 for any sign of impending dehiscence or infection.
[2017-01-11] MEDS: IBUPROFEN 600 MG TAB PO PRN ×2 (13:43→20:12)
[2017-01-11] MEDS: HYDROmorphONE/DILAUDID 2 MG TAB PO PRN ×3 (14:16→23:14)
--- NOTE | 2017-01-11 15:52 | OBPP ---
Progress Note Assessment/Plan: Assessment: 36 y/o POD #1 s/p LTCS secondary to arrest of dilation, descent and chorioamnionitis Plan: Her IV infiltrated this afternoon, and she just spiked at fever of 38.4. We will get it restarted, and continue Amp, Gent and Clinda and get a CBC and blood cultures. Wound care came today and offered additional bandages that are anti-microbial and moisture wicking. She is showering now and then we will apply this bandage and they will follow with us. She has Ibuprofen and Dilaudid po prn pain and will advance diet as tolerated. support and continue breast feeding. 01/09/17 13:09 01/09/17 15:11 01/09/17 19:04 01/09/17 20:05 01/09/17 23:36 01/10/17 05:43 01/10/17 09:55 01/10/17 11:31 01/10/17 12:25 01/10/17 22:12 01/11/17 15:52 Subjective: Pt is feeling ok today. She says she is feeling chills. Her pain is tolerable and she is ambulating, voiding without difficulty and has only taken Ibuprofen. Her baby is stable in the NICU and has breast fed. Objective: 01/11/17 05:25 01/09/17 08:27 Patient ABO/Rh B POSITIVE 01/09/17 08:27 Uric Acid 4.6 mg/dL (2.5-6.8) 01/09/17 08:27 Total Bilirubin 0.5 mg/dL (0.1-1.4) 01/09/17 08:27 Conjugated Bilirubin 0.4 mg/dL (0.0-0.5) 01/09/17 08:27 Unconjugated Bilirubin 0.1 mg/dL (0.0-1.1) 01/09/17 08:27 AST 19 IU/L (14-46) 01/09/17 08:27 ALT 18 IU/L (9-52) 01/09/17 08:27 Lactate Dehydrogenase 815 IU/L (313-618) H 01/09/17 08:27 Temp Pulse Resp BP Pulse Ox 38.6 C H 97 20 103/70 96 01/11/17 14:30 01/11/17 14:30 01/11/17 08:00 01/11/17 14:30 01/11/17 08:00 Uterine Position/Fundal Height: Umbilicus -2 Uterine Tone: Firm Physical Exam - Physical Exam General Appearance: WD/WN, alert, no apparent distress Neck: non-tender, full range of motion, supple Respiratory: chest non-tender, lungs clear, normal breath sounds Cardiac/Chest: regular rate, rhythm Abdomen: normal bowel sounds, incision (c/d/i) Extremities: swelling (2+), Britney's sign (neg)
[2017-01-11 16:26] LABS: % IMMATURE GRANULYOCYTES 0.7 % (0.0-1.1); ADD DIFF? NO; ADD MORPH? NO; ADD SCAN? NO; ATYPICAL LYMPHOCYTE FLAG 0 (0-99); FRAGMENT RBC FLAG 0 (0-99); HEMATOCRIT 29.6 % (38.0-47.0); LEFT SHIFT FLG 0 (0-99); LIPEMIA HEMOLYSIS FLAG 90 (0-99); MEAN CELL HEMOGLOBIN CONCENTR. 33.8 g/dL (32.4-36.7); MEAN CELL VOLUME 79.8 fL (81.5-99.8); MEAN PLATELET VOLUME 11.4 fL (8.7-11.7); PLATELET CLUMPS FLAG 20 (0-99); PLATELET COUNT 203 10^3/uL (150-400); RED BLOOD CELL COUNT 3.71 10^6/uL (4.18-5.33); RED CELL DISTRIBUTION WIDTH 13.9 % (11.5-15.2)
[2017-01-11] MEDS: IRON POLYSAC/IRON HEME 28 MG TAB PO SCH (18:41)
[2017-01-11] MEDS ORDERED: CLINDAMYCIN 600 MG/DEXTROSE 50 ML IV SCH (20:00)
[2017-01-11] MEDS: ACETAMINOPHEN 500 MG TAB PO PRN (20:54)
[2017-01-12] MEDS: CLINDAMYCIN 600 MG/DEXTROSE 50 ML IV SCH ×3 (00:25→16:32)
[2017-01-12] MEDS: D5W IV SCH ×3 (01:09→17:18)
[2017-01-12] MEDS: GENTAMICIN SULFATE IV SCH ×3 (01:09→17:18)
[2017-01-12] MEDS: IBUPROFEN 600 MG TAB PO PRN ×3 (02:15→17:28)
[2017-01-12] MEDS: HYDROmorphONE/DILAUDID 2 MG TAB PO PRN ×5 (03:22→21:17)
[2017-01-12] MEDS: AMPICILLIN SODIUM 2 GM in NS 100 ML IV SCH ×3 (05:11→21:17)
[2017-01-12 05:54] LABS: % IMMATURE GRANULYOCYTES 0.8 % (0.0-1.1); ABSOLUTE IMMATURE GRANULOCYTES 0.11 10^3/uL (0.00-0.10); ADD DIFF? NO; ADD MORPH? NO; ADD SCAN? NO; ATYPICAL LYMPHOCYTE FLAG 0 (0-99); FRAGMENT RBC FLAG 0 (0-99); HEMATOCRIT 30.5 % (38.0-47.0); LEFT SHIFT FLG 10 (0-99); LIPEMIA HEMOLYSIS FLAG 80 (0-99); MEAN CELL HEMOGLOBIN 26.7 pg (27.9-34.1); MEAN CELL HEMOGLOBIN CONCENTR. 32.8 g/dL (32.4-36.7); MEAN CELL VOLUME 81.6 fL (81.5-99.8); MEAN PLATELET VOLUME 11.2 fL (8.7-11.7); PLATELET CLUMPS FLAG 10 (0-99); PLATELET COUNT 187 10^3/uL (150-400); RED BLOOD CELL COUNT 3.74 10^6/uL (4.18-5.33); RED CELL DISTRIBUTION WIDTH 14.1 % (11.5-15.2)
--- NOTE | 2017-01-12 08:58 | POSTANESTH ---
Post Anesthetic Evaluation Cardiovascular Status: Normal, Stable Respiratory Status: Normal, Stable Level of Consciousness/Mental Status: Can Participate in Eval Pain Control: Adequate, Prn Tx Ordered Nausea/Vomiting Control: Adequate, Prn Tx Ordered Complications Possibly Related to Anesthesia: None Noted (Back dry. No signs of infection. No VINSON)
--- NOTE | 2017-01-12 09:02 | OBPP ---
Progress Note Assessment/Plan: Assessment: 1) s/p 1 LTCS secondary to arrest of descent, dilation POD # 2 2) Anemia - pt is asymptomatic 3) s/p chorio - pt is currently afebrile, on abx Plan: Continue routine post-op care Will cont abx x 24hrs afebrile, last fever at 01/11 Blood cx's pending Encourage ambulation Continue wound care daily consult Plan for d/c in 24-48 hrs 01/12/17 09:06 Subjective: Pt seen and examined. Sitting in chair in NICU BF baby girl. Doing better. Pain is controlled with Dilaudid and Motrin. Pt is OOB, cherise regular diet, voiding without difficulty and passing flatus. No BM yet. Denies any f/c/n/v/CP or SOB. BF went well yesterday and now she won't latch. Moderate lochia. Objective: 01/12/17 05:15 01/09/17 08:27 Patient ABO/Rh B POSITIVE 01/09/17 08:27 Uric Acid 4.6 mg/dL (2.5-6.8) 01/09/17 08:27 Total Bilirubin 0.5 mg/dL (0.1-1.4) 01/09/17 08:27 Conjugated Bilirubin 0.4 mg/dL (0.0-0.5) 01/09/17 08:27 Unconjugated Bilirubin 0.1 mg/dL (0.0-1.1) 01/09/17 08:27 AST 19 IU/L (14-46) 01/09/17 08:27 ALT 18 IU/L (9-52) 01/09/17 08:27 Lactate Dehydrogenase 815 IU/L (313-618) H 01/09/17 08:27 Temp Pulse Resp BP Pulse Ox 36.2 C 98 18 108/67 93 01/12/17 02:17 01/12/17 02:17 01/12/17 02:17 01/12/17 02:17 01/12/17 02:17 Uterine Position/Fundal Height: Umbilicus -1 Uterine Tone: Firm Physical Exam - Physical Exam General Appearance: WD/WN, alert, no apparent distress Respiratory: lungs clear, normal breath sounds Cardiac/Chest: regular rate, rhythm Abdomen: normal bowel sounds, non-tender, soft, flatus (+), incision (C/D/I with sam), dressing (Intact) Extremities: non-tender, normal inspection, swelling Neuro/Psych: alert, normal mood/affect, oriented x 3
--- NOTE | 2017-01-12 09:03 | POSTANESTH ---
Post Anesthetic Evaluation Cardiovascular Status: Normal, Stable Respiratory Status: Normal, Stable Level of Consciousness/Mental Status: Can Participate in Eval Pain Control: Adequate, Prn Tx Ordered Nausea/Vomiting Control: Adequate, Prn Tx Ordered Complications Possibly Related to Anesthesia: None Noted
--- NOTE | 2017-01-12 09:20 | PDANEPAE ---
ANE Patient History - Allergies Allergies/Adverse Reactions: Sulfa (Sulfonamide Antibiotics) Allergy (Severe, Verified 01/09/17 08:30) - Home Medications Home Medications: Vit27&Calcium/Iron/FA [] 1 tab PO DAILY 01/09/17 [Last Taken Unknown] - Smoking Hx Smoking Status: Never smoked ANE Labs/Vital Signs - Labs Result Diagrams: 01/12/17 05:15 01/09/17 08:27 - Vital Signs Blood Pressure: 108/67 Heart Rate: 98 Respiratory Rate: 18 O2 Sat (%): 93 Height: 168.91 cm Weight: 162.386 kg
[2017-01-12] MEDS: IRON POLYSAC/IRON HEME 28 MG TAB PO SCH (11:28)
[2017-01-12] MEDS: SENNOSIDES/DOCUSATE SODIUM TAB PO SCH ×2 (11:29→21:17)
[2017-01-12] MEDS: ACETAMINOPHEN 500 MG TAB PO PRN ×2 (11:32→17:28)
--- NOTE | 2017-01-12 17:20 | OBPP ---
Progress Note Assessment/Plan: Assessment:incision covered per wound management. no tenderness to incision, no warmth , no redness/ wound management involved with care voiding without difficulty passing gas/ bowel protocol pain well managed IS begun today walking in the lira encouraged pumping and nipples intact iv infiltrated earlier in the day discussed restarting or a picc line desired to just try to restart able to fo so in her right back of forearm without difficulty to allow for continued antibiotics Plan:expectant management po day 1 01/12/17 17:15 Subjective: Crying. Hving some difficuties today with staff and protocols. Iv has infiltrated again. Needing more antibiotics. Temp last night 102 at 2000 needs 24h of triple antibiotics. LAck of privacy. Donor milk, dressing in regular clothes. Pushing patient to do what she will do just in her own time. Reassured patient I would talk with nursing. Was able to speaK TO THE nicu nurse and the pp nurse Objective: 01/12/17 05:15 01/09/17 08:27 Patient ABO/Rh B POSITIVE 01/09/17 08:27 Uric Acid 4.6 mg/dL (2.5-6.8) 01/09/17 08:27 Total Bilirubin 0.5 mg/dL (0.1-1.4) 01/09/17 08:27 Conjugated Bilirubin 0.4 mg/dL (0.0-0.5) 01/09/17 08:27 Unconjugated Bilirubin 0.1 mg/dL (0.0-1.1) 01/09/17 08:27 AST 19 IU/L (14-46) 01/09/17 08:27 ALT 18 IU/L (9-52) 01/09/17 08:27 Lactate Dehydrogenase 815 IU/L (313-618) H 01/09/17 08:27 Temp Pulse Resp BP Pulse Ox 37.2 C 115 H 18 130/90 H 95 01/12/17 16:00 01/12/17 16:00 01/12/17 16:00 01/12/17 16:00 01/12/17 16:00 Uterine Position/Fundal Height: At Umbilicus Uterine Tone: Firm Physical Exam - Physical Exam General Appearance: WD/WN, alert, no apparent distress Respiratory: chest non-tender, lungs clear, normal breath sounds Cardiac/Chest: regular rate, rhythm Abdomen: normal bowel sounds, flatus Extremities: normal range of motion, swelling (2= BILATERALLY), Britney's sign ( negative bilateraly) DTR- Lower Extremities: Knee (R): 2+, Knee (L): 2+ (no clonus) Skin: normal color, warm/dry Neuro/Psych: no motor/sensory deficits, alert, oriented x 3 ( STRESSED TODAY, TEARFUL )
[2017-01-13] MEDS: CLINDAMYCIN 600 MG/DEXTROSE 50 ML IV SCH ×4 (00:42→22:55)
[2017-01-13] MEDS ORDERED: GENTAMICIN 100 MG/NACL 100 ML IV SCH (01:00)
[2017-01-13] MEDS: GENTAMICIN SULFATE IV SCH ×3 (01:34→17:15)
[2017-01-13] MEDS: D5W IV SCH ×3 (01:34→17:15)
[2017-01-13] MEDS: AMPICILLIN SODIUM 2 GM in NS 100 ML IV SCH ×4 (02:42→20:23)
[2017-01-13] MEDS: IBUPROFEN 600 MG TAB PO PRN ×4 (02:42→21:13)
[2017-01-13] MEDS: ACETAMINOPHEN 500 MG TAB PO PRN ×4 (02:42→23:07)
[2017-01-13] MEDS: HYDROmorphONE/DILAUDID 2 MG TAB PO PRN ×2 (02:42→06:48)
[2017-01-13] MEDS: SENNOSIDES/DOCUSATE SODIUM TAB PO SCH ×2 (08:46→21:00)
[2017-01-13] MEDS: IRON POLYSAC/IRON HEME 28 MG TAB PO SCH (08:47)
--- NOTE | 2017-01-13 14:03 | OBPP ---
Progress Note Assessment/Plan: Assessment: 36 y/o POD #3 s/p LTCS secondary to arrest of dilation, descent and chorioamnionitis Plan: She is doing well. Pain is well controlled, she is ambulating well. I changed her dressing with wound care today and she looks good. We will d/c her antibiotics and consider d/c home tomorrow. 01/09/17 13:09 01/09/17 15:11 01/09/17 19:04 01/09/17 20:05 01/09/17 23:36 01/10/17 05:43 01/10/17 09:55 01/10/17 11:31 01/10/17 12:25 01/10/17 22:12 01/11/17 15:52 01/13/17 14:01 Subjective: Pt is doing much better today. Her pain is well controlled and she is using 1/ 2 dose of Dilaudid and Ibuprofen. She is ambulating, voiding well and has min lochia. Nursing is going well and baby is latching. Her wound is healing well and looks good. She has been afebrile now almost 48 hours and we will d/c antibiotics. Objective: 01/12/17 05:15 01/09/17 08:27 Patient ABO/Rh B POSITIVE 01/09/17 08:27 Uric Acid 4.6 mg/dL (2.5-6.8) 01/09/17 08:27 Total Bilirubin 0.5 mg/dL (0.1-1.4) 01/09/17 08:27 Conjugated Bilirubin 0.4 mg/dL (0.0-0.5) 01/09/17 08:27 Unconjugated Bilirubin 0.1 mg/dL (0.0-1.1) 01/09/17 08:27 AST 19 IU/L (14-46) 01/09/17 08:27 ALT 18 IU/L (9-52) 01/09/17 08:27 Lactate Dehydrogenase 815 IU/L (313-618) H 01/09/17 08:27 Temp Pulse Resp BP Pulse Ox 36.3 C 87 21 H 134/91 H 94 01/13/17 09:20 01/13/17 09:20 01/13/17 09:20 01/13/17 09:20 01/13/17 09:20 Uterine Position/Fundal Height: Umbilicus -2 Uterine Tone: Firm Physical Exam - Physical Exam General Appearance: WD/WN, alert, no apparent distress Neck: non-tender, full range of motion, supple Respiratory: chest non-tender, lungs clear, normal breath sounds Cardiac/Chest: regular rate, rhythm Abdomen: normal bowel sounds, incision (c/d/i, sam removed), dressing ( using silver dressings needing to be changed Q 2-3 days) Extremities: swelling (2+), Britney's sign (neg)
[2017-01-13 20:12] LABS: % IMMATURE GRANULYOCYTES 1.2 % (0.0-1.1); ABSOLUTE IMMATURE GRANULOCYTES 0.15 10^3/uL (0.00-0.10); ADD DIFF? NO; ADD MORPH? NO; ADD SCAN? NO; ATYPICAL LYMPHOCYTE FLAG 0 (0-99); FRAGMENT RBC FLAG 0 (0-99); HEMATOCRIT 28.5 % (38.0-47.0); HEMOGLOBIN 9.3 g/dL (12.6-16.3); LEFT SHIFT FLG 20 (0-99); LIPEMIA HEMOLYSIS FLAG 80 (0-99); MEAN CELL HEMOGLOBIN 26.3 pg (27.9-34.1); MEAN CELL HEMOGLOBIN CONCENTR. 32.6 g/dL (32.4-36.7); MEAN CELL VOLUME 80.7 fL (81.5-99.8); PLATELET CLUMPS FLAG 0 (0-99); PLATELET COUNT 217 10^3/uL (150-400); RED BLOOD CELL COUNT 3.53 10^6/uL (4.18-5.33)
[2017-01-13 20:31] LABS: ALANINE AMINOTRANSFERASE 47 IU/L (9-52); ASPARTATE AMINOTRANSFERASE 49 IU/L (14-46); BILIRUBIN,TOTAL 0.5 mg/dL (0.1-1.4); BILIRUBIN-CONJUGATED 0.5 mg/dL (0.0-0.5); CREATININE 0.8 mg/dL (0.6-1.0); GLOMERULAR FILTRATION RATE > 60; LACTATE DEHYDROGENASE 599 IU/L (313-618); URIC ACID 5.3 mg/dL (2.5-6.8)
[2017-01-14] MEDS: IBUPROFEN 600 MG TAB PO PRN ×3 (03:05→16:06)
[2017-01-14] MEDS: ACETAMINOPHEN 500 MG TAB PO PRN ×2 (04:36→12:49)
[2017-01-14] MEDS: SENNOSIDES/DOCUSATE SODIUM TAB PO SCH (09:44)
[2017-01-14] MEDS: IRON POLYSAC/IRON HEME 28 MG TAB PO SCH (09:45)
[2017-01-14 10:05] VITALS: BP 142/98; PULSE 84; RESP 21; TEMP 97.5; O2SAT 98
--- NOTE | 2017-01-14 13:32 | WOCRNPDOC ---
WOCRN Advanced Assessment Note - Skin Integrity Problem, Advanced Assess Lower Abdomen Surgical Wound/Incision Dressing Type: Other Other Dressing Type: Therabond Silver Incisional Dressing Dressing Description: Clean/Dry, Intact Closure Description: [place], Approximated Exudate Amount: None Integumentary Issue Intervention: Dressing Removed (using adhesive remover spray ) Renae Wound Tissue: Intact Renae Wound Swelling: None Wound Edges: Epithelizing Site Odor: None Skin Integrity Problem Comment: Late Entry: Visit requested by Dr. Baker to assist with atraumatic dressing removal due to patient anxiety about tenderness and pain associated with skin stripping 2/2 adhesive. Applied Sensicare adhesive releaser spray prior to dressing removal, which patient then tolerated with minimal discomfort. Incision presented with a clean, healing appearance. Dr. Baker ordered staple removal at that time, which was done by bedside RN. Sensicare spray was left with patient supplies for future use, and atraumatic silicone tape sample was provided to the pulling unit floorhand for eval.
--- NOTE | 2017-01-14 14:46 | OBPP ---
Progress Note Assessment/Plan: Assessment: pod 4 S/P primary C/S for arrest of labor with thick mec and chorio s/p abx and doing well. Plan: d/C home 01/14/17 14:41 Subjective: Pt currently on conference call with work. Per RN, baby has been latching great and milk coming in. Pain controlled with tyl and ibu. amb well and urinating without problems. Disc taking a script for dilaudid to fill if needed. Has not been seen by wound care yet today. Objective: 01/13/17 20:05 01/13/17 20:05 Patient ABO/Rh B POSITIVE 01/09/17 08:27 Uric Acid 5.3 mg/dL (2.5-6.8) 01/13/17 20:05 Total Bilirubin 0.5 mg/dL (0.1-1.4) 01/13/17 20:05 Conjugated Bilirubin 0.5 mg/dL (0.0-0.5) 01/13/17 20:05 Unconjugated Bilirubin 0.0 mg/dL (0.0-1.1) 01/13/17 20:05 AST 49 IU/L (14-46) H 01/13/17 20:05 ALT 47 IU/L (9-52) 01/13/17 20:05 Lactate Dehydrogenase 599 IU/L (313-618) 01/13/17 20:05 Temp Pulse Resp BP Pulse Ox 36.4 C 84 21 H 142/98 H 98 01/14/17 10:04 01/14/17 10:04 01/14/17 10:04 01/14/17 10:04 01/14/17 10:04 Uterine Position/Fundal Height: At Umbilicus Uterine Tone: Firm Physical Exam - Physical Exam General Appearance: WD/WN Abdomen: non-tender, soft Extremities: non-tender, pedal edema (moderate) Skin: warm/dry Neuro/Psych: normal mood/affect
--- NOTE | 2017-01-14 14:58 | OBGCSDC ---
General Delivery Information - General Info : 1 Para: 1 Abortions: 0 Delivery Physician/CNM: More Baker Admission Date: 01/09/17 Labs: Patient ABO/Rh B POSITIVE 01/09/17 08:27 Hct 28.5 % (38.0-47.0) L 01/13/17 20:05 Vaginal - Diagnosis Presentation at Delivery: Vertex - Operations/Procedures Non-surgical Procedures: Amniotomy, FSE, IUPC (IUPC replaced ) L&D Analgesia/Anesthesia Type: Epidural - Delivery Number of Prior Sections: 0 Indications for Current Section: Arrest of Dilation Type: Primary Non-surgical Procedures: Amniotomy, FSE, IUPC (IUPC replaced ) Surgical Procedures: Unscheduled L&D Analgesia/Anesthesia Type: Epidural - Hospital Course Intrapartum: With thick mec and foul smelling amniotic fluid - pt dx with chorio and begun on Amp/Gent/Clinda after C/S. temp sergei to 102 but abx stopped after 24 hrs afeb. Arrest of dilation at 8 cm - no signs of chorio prior to delivery : did well. temp decreased after abx and remained afeb after abx stopped. B/P commonly 130-140s/80-90s - hx of [place] Data [facility] Delivery Date: 01/10/17 Delivery Time: 14:46 SERGIO: 01/04/17 Gestational Age: 41 week(s) and 3 day(s) Sex of Infant: Female Weight (gm): 3830 g Score (1 Min): 8 Score (5 Min): 8 Discharge Information - Discharge Information Discharge Medications: Other (Specify) (dilaudid script written) Condition: Good Instruction/Follow Up: See Instruction Sheet, Two Weeks, Six Weeks Discharge Physician/CNM: Yuliya Bravo
--- NOTE | 2017-01-14 17:06 | WOCRNPDOC ---
WOCRN Advanced Assessment Note - Skin Integrity Problem, Advanced Assess Lower Abdomen Surgical Wound/Incision Dressing Type: Other Other Dressing Type: Therabond Silver incisional dressing Dressing Description: Clean/Dry, Intact Closure Description: Approximated Exudate Amount: None Exudate Characteristic(s): None Integumentary Issue Intervention: Dressing Removed Renae Wound Tissue: Intact Renae Wound Swelling: None Skin Integrity Problem Comment: [place] removed by physician yesterday, and wound is well-approximated w/ no swelling or erythema noted. Site okay to be left ARISTEO going forward. Supplied patient w/ Interdry sheets to tuck into her pannus; these fabric sheets are impregnated with silver and designed to wick moisture away from skin, which will be beneficial to her healing incision. They may be washed, hung to dry, and re-used. guillotine operator Patty present and assisting.
== END 2017-01-14 17:05 | disposition home or self-care (01) | DRG 765 ==
LOC: FLD 07:41 → FOB 01-10 18:06
PROVIDERS: ADMIT Obstetrics & Gynecology; ATTEND Obstetrics & Gynecology
PROC: 4A1H7CZ Monitoring of Products of Conception, Cardiac Rate, Via Natural or Artificial Opening (ICD-10-PCS; 2017-01-09)
PROC: 10H07YZ Insertion of Other Device into Products of Conception, Via Natural or Artificial Opening (ICD-10-PCS; 2017-01-09)
PROC: 10908ZC Drainage of Amniotic Fluid, Therapeutic from Products of Conception, Via Natural or Artificial Opening Endoscopic (ICD-10-PCS; 2017-01-09)
PROC: 10D00Z1 Extraction of Products of Conception, Low, Open Approach (ICD-10-PCS; principal; 2017-01-10)
DX: O62.0 Primary inadequate contractions (principal); O32.4XX0 Maternal care for high head at term, not applicable or unspecified; O41.1230 Chorioamnionitis, third trimester, not applicable or unspecified; O77.0 Labor and delivery complicated by meconium in amniotic fluid; O10.413 Pre-existing secondary hypertension complicating pregnancy, third trimester; O99.03 Anemia complicating the puerperium; O99.213 Obesity complicating pregnancy, third trimester; O99.843 Bariatric surgery status complicating pregnancy, third trimester; O99.89 Other specified diseases and conditions complicating pregnancy, childbirth and the puerperium; M41.20 Other idiopathic scoliosis, site unspecified; O09.513 Supervision of elderly primigravida, third trimester; Z3A.40 40 weeks gestation of pregnancy; Z37.0 Single live birth
CPT/HCPCS: J0290; J0690; J1885; J2210; J2274; J2370; J2550; J2590; J3010; J3105

== ENCOUNTER 2017-07-16 09:01 | Day surgery (SDC) | payer OTHER ==
[2017-07-16] MEDS ORDERED: LIDOCAINE 1% 2 ML INJ ONE (09:25)
[2017-07-16] MEDS ORDERED: BUPIVACAINE 0.25% 30 ML SDV ONE (09:36)
[2017-07-16] MEDS ORDERED: LIDOCAINE 1% 2 ML INJ ID PRN (09:41)
[2017-07-16] MEDS ORDERED: LR 1,000 ML IV ONE (09:41)
[2017-07-16] MEDS ORDERED: DEXAMETHASONE 4 MG/ML VIAL IVP ONE (09:46)
--- NOTE | 2017-07-16 09:47 | PDHPUP ---
History & Physical Update H&P update statement: This history and physical update is based on an assessment of the patient which was completed after admission or registration (within 24 hours), but prior to the surgery/procedure.
[2017-07-16 09:52] VITALS: PULSE 82
--- NOTE | 2017-07-16 10:04 | PDANEPAE ---
ANE History of Present Illness chronic tonillitis ANE Past Medical History - Cardiovascular History Hx Hypertension: No Hx Arrhythmias: No Hx Chest Pain: No Hx Coronary Artery / Peripheral Vascular Disease: No Hx CHF / Valvular Disease: No Hx Palpitations: No - Pulmonary History Hx COPD: No Hx Asthma/Reactive Airway Disease: No Hx Recent Upper Respiratory Infection: No Hx Oxygen in Use at Home: No Hx Sleep Apnea: No Sleep Apnea Screening Result - Last Documented: Negative - Neurologic History Hx Cerebrovascular Accident: No Hx Seizures: No Hx Dementia: No - Endocrine History Hx Diabetes: No - Renal History Hx Renal Disorders: No - Liver History Hx Hepatic Disorders: No - Neurological & Psychiatric Hx Hx Neurological and Psychiatric Disorders: No - Cancer History Hx Cancer: No - Congenital Disorder History Hx Congenital Disorders: Yes Congenital History Comment: lower spine scoliosis - GI History Hx Gastrointestinal Disorders: No - Other Health History Other Health History: none - Chronic Pain History Chronic Pain: Yes (lower back) - Surgical History Prior Surgeries: wisdom teeth removed, lap band placed 2007,c-sections ANE Review of Systems Review of systems is: negative Review of Systems: - Exercise capacity Exercise capacity: >=4 METS METS (RN): 4 METS ANE Patient History - Allergies Allergies/Adverse Reactions: Sulfa (Sulfonamide Antibiotics) Allergy (Severe, Verified 07/14/17 11:29) Anaphylaxis Tetracyclines Allergy (Severe, Verified 07/14/17 11:29) Other-Enter Comments meperidine [From Demerol] Allergy (Intermediate, Verified 07/14/17 11:29) Other-Enter Comments - Home Medications Home Medications: Vit27&Calcium/Iron/FA [] 01/09/17 [Last Taken 07/12/17] Acetaminophen [Tylenol ES 500 mg (*)] 07/14/17 [Last Taken 1 Week Ago ~07/09/17 ] Ibuprofen [Motrin (*)] 07/14/17 [Last Taken 1 Week Ago ~07/09/17] Herbals/Supplements -Info Only 07/16/17 [Last Taken 07/12/17] - NPO status NPO Status: no food or drink >8 hours NPO Since - Liquids (Date): 07/15/17 NPO Since - Liquids (Time): 22:00 NPO Since - Solids (Date): 07/15/17 NPO Since - Solids (Time): 19:00 - Anes Hx Anes Hx: no prior problems - Smoking Hx Smoking Status: Never smoked - Alcohol Use Alcohol Use: None - Family Anes Hx Family Hx Anesthesia Complications: none ANE Labs/Vital Signs - Vital Signs Vital Signs: reviewed preoperatively; see RN documention for details Blood Pressure: 150/91 Heart Rate: 82 Respiratory Rate: 15 O2 Sat (%): 99 Height: 170.18 cm Weight: 149.685 kg ANE Physical Exam - Airway Neck exam: FROM Mallampati Score: Class 1 - Pulmonary Pulmonary: no respiratory distress - Cardiovascular Cardiovascular: regular rate and rhythym - ASA Status ASA Status: II ANE Anesthesia Plan Anesthesia Plan: general endotracheal anesthesia
[2017-07-16] MEDS ORDERED: MIDAZOLAM 2 MG/2 ML VIAL IVP ONE (10:06)
[2017-07-16] MEDS ORDERED: MIDAZOLAM 2 MG/2 ML VIAL ONE (10:10)
[2017-07-16] MEDS ORDERED: LIDOCAINE 2% 5 ML SDV ONE (10:21)
[2017-07-16] MEDS ORDERED: ROCURONIUM 50 MG/5 ML VIAL ONE (10:21)
[2017-07-16] MEDS ORDERED: fentaNYL 100 MCG/2 ML INJ ONE ×3 (10:21→11:31)
[2017-07-16] MEDS ORDERED: ONDANSETRON 4 MG/2 ML VIAL ONE ×2 (10:21→10:49)
[2017-07-16] MEDS ORDERED: PROPOFOL 200 MG/20 ML VIAL ONE (10:21)
[2017-07-16] MEDS ORDERED: DEXAMETHASONE 4 MG/ML VIAL ONE (10:21)
[2017-07-16] MEDS ORDERED: ESMOLOL HCL 100 MG/10 ML VIAL IV ONE (10:46)
[2017-07-16] MEDS ORDERED: SUGAMMADEX SODIUM 500 MG/5 ML VIAL IVP ONE (10:56)
--- NOTE | 2017-07-16 11:01 | POSTOPPROG ---
Post Op Note Date of Operation: 07/16/17 Surgeon: Chance Rodriges Anesthesia: GET(General Endotracheal) Pre-op Diagnosis: chronic tonsillitis Post-op Diagnosis: same Procedure: tonsillectomy Inf/Abcess present in the surg proc area at time of surgery?: No Depth: Deep Incisional (Fascial) EBL: 50-100 Total fluids administered: 500 Complications: none Specimen(s): tonsils
[2017-07-16] MEDS ORDERED: PHENYLEPHRINE HCL 100 MCG/ML SYR IVP PRN (11:15)
[2017-07-16] MEDS ORDERED: ALBUTEROL 3 ML DEYVIAL IH PRN (11:15)
[2017-07-16] MEDS ORDERED: NALOXONE HCL 0.4 MG/ML INJ IVP PRN ×2 (11:15)
[2017-07-16] MEDS ORDERED: LABETALOL HCL 5 MG/ML 20 ML MDV IVP PRN (11:15)
[2017-07-16] MEDS ORDERED: OXYCODONE/APAP 5/325 TAB PO PRN (11:15)
[2017-07-16] MEDS ORDERED: PROMETHAZINE HCL 25 MG/ML INJ IVP PRN (11:15)
[2017-07-16] MEDS ORDERED: HYDROCODONE/APAP 5/325 TAB PO PRN (11:15)
[2017-07-16] MEDS ORDERED: ONDANSETRON 4 MG/2 ML VIAL IVP PRN (11:15)
[2017-07-16 11:22] VITALS: TEMP 97.9
[2017-07-16] MEDS: fentaNYL 100 MCG/2 ML INJ IVP PRN ×2 (11:32→11:45)
[2017-07-16 13:12] VITALS: RESP 16
[2017-07-16 13:13] VITALS: BP 129/89
[2017-07-16 14:21] VITALS: O2SAT 97
--- NOTE | 2017-07-16 20:14 | GOP ---
[f rep st] OPERATIVE REPORT DATE OF OPERATION: 07/16/2017 SURGEON: Julian Rodriges MD ANESTHESIA: General endotracheal. PREOPERATIVE DIAGNOSIS: Chronic tonsillitis. POSTOPERATIVE DIAGNOSIS: Chronic tonsillitis. PROCEDURE PERFORMED: Tonsillectomy. FINDINGS: Tonsillar hypertrophy. ESTIMATED BLOOD LOSS: 50 mL. DESCRIPTION OF PROCEDURE: Patient was placed on the operating table in supine position. After induc tion of adequate general endotracheal anesthesia, sterile draping was performed. Sterile eye pads an d head drape were placed. A shoulder roll was placed beneath the patient's shoulders to extend the n leticia. The Buster-Serafin mouth gag was inserted over the previously placed endotracheal tube with care g iven to maintain the tube at correct depth. The Buster-Serafin mouth gag was then opened revealing enla rged tonsils. The right tonsil was then grasped with an Allis clamp and retracted medially. Circumf erential dissection of the right tonsil was performed using a needle-tip Bovie electrocautery. Hemos tasis obtained throughout the right tonsillar fossa by use of Bovie electrocautery as well. The left tonsil was then grasped and excised in a manner identical to that of the right. Hemostasis was obta ined throughout the left tonsillar fossa by use of the Bovie electrocautery as well. Once this was c ompleted, the Buster-Serafin mouth gag was let down for approximately 1 minute and then reopened. No fu rther bleeding was noted. Right and left tonsillar fossas were infiltrated with 0.25% Marcaine solut ion. A total of 18 mL was injected with care given to avoid intravascular injection. At this point, the Buster-Serafin mouth gag with let down for approximately 1 minute further. No further bleeding was noted from the injection sites. An orogastric tube was passed. The patient's gastric contents were aspirated. She was then awakened, transferred to postanesthesia recovery area in stable condition. FLUID REPLACEMENT: 500 mL. COMPLICATIONS: None. /[id number]/MODL
== END 2017-07-16 14:09 | disposition home or self-care (01) ==
LOC: FSGY 09:01
PROVIDERS: ATTEND Otolaryngology
PROC: 0CTPXZZ Resection of Tonsils, External Approach (ICD-10-PCS; principal; 2017-07-16 10:30)
DX: J35.01 Chronic tonsillitis (principal); J35.1 Hypertrophy of tonsils; Z88.2 Allergy status to sulfonamides
CPT/HCPCS: J1100; J2250; J2405; J2704; J3010